=== PATIENT | female | born 1945 | race Caucasian/White ===

== ENCOUNTER 2022-03-25 10:07 | Outpatient (CLI) | payer MEDICARE ==
[2022-03-25 13:44] LABS: Hemoglobin 12.8 g/dL (12.0-15.5)
[2022-03-25 13:49] LABS: Anion Gap 12 mmol/L (10-20); Calc. Creatinine Clearance 0 mL/min (70-130); Calcium 10.6 mg/dL (7.8-10.44); Carbon Dioxide 26 mmol/L (23-31); Chloride 104 mmol/L (98-107); Estimated GFR 89; Glucose 60 mg/dL (83-110); Potassium 4.4 mmol/L (3.5-5.1); Sodium 138 mmol/L (136-145)
[2022-03-25 13:52] LABS: BUN (Urea Nitrogen) 14 mg/dL (9.8-20.1)
== END 2022-03-25 10:08 | disposition home or self-care (01) ==
LOC: CSHLAB 10:07
PROVIDERS: ATTEND Otolaryngology Plastic Surgery within the Head & Neck
DX: Z01.818 Encounter for other preprocedural examination (principal); Z20.822 Contact with and (suspected) exposure to COVID-19; D35.1 Benign neoplasm of parathyroid gland
CPT/HCPCS: 80048; 85014; 85018; 87811; 93005; 93010